=== PATIENT | female | born 1930 | race Caucasian/White ===

== ENCOUNTER 2018-06-17 05:57 | Inpatient (IN) ==
[2018-06-10 12:49] LABS: Basophils % 0.3 % (0.0-0.8); Eosinophils # 0.1 10*3/uL (0.0-0.87); Eosinophils % 1.1 % (0.00-10.9); Hematocrit 41.9 VOL% (35.7-47.0); Hemoglobin 14.1 GM/DL (12.0-16.0); Immature Granulocytes % 0.1 %; Immature Granulocytes Absolute 0.01 #; Lymphocytes # 2.8 10*3/uL (1.4-4.0); Mean Corpuscular HGB Conc 33.7 GM/DL (32-36); Mean Corpuscular Hemoglobin 33 PG (27-34); Mean Corpuscular Volume 97.7 FL (87-102); Mean Platelet Volume 10.8 FL (9.6-12.0); Monocytes # 0.6 10*3/uL (0.11-0.8); Monocytes % 7.8 % (1.7-12.7); Neutrophils # 4.4 10*3/uL (1.4-7.4); Neutrophils % 55.7 % (38.7-73.9); Platelet Count 145 T/CUMM (130-400); Red Blood Count 4.29 MC/CUMM (3.8-5.5); Red Cell Distribution Width 13.4 % (9.3-17.3); White Blood Count 7.9 T/CUMM (4-12)
[2018-06-10 12:57] LABS: INR 1.1; PT Patient Result 11.2 SECS
[2018-06-10 13:23] LABS: Albumin 3.5 G/DL (3.4-5.0); Bilirubin,Total 0.4 MG/DL (0.2-1.0); Calcium 9.4 MG/DL (8.5-10.1); Osmolality,Calculated 280.5 MOS/KG (273-304); Potassium 4.1 MMOL/L (3.5-5.1); Total Protein 7.4 G/DL (6.4-8.3)
[2018-06-17] MEDS ORDERED: VANCOMYCIN 1,000 MG VIAL ONE (06:06)
[2018-06-17] MEDS ORDERED: THROMBIN TOPICAL (RECOMBINANT) 5,000 UNIT VIAL TOP ONE (06:23)
[2018-06-17] MEDS ORDERED: TISSUE ADHESIVE 1 EACH APPLICATOR TOP ONE (06:23)
[2018-06-17] MEDS ORDERED: LIDOCAINE 1% 20 ML VIAL ONE (06:23)
[2018-06-17] MEDS ORDERED: HEPARIN 5,000 UNIT/1 ML VIAL ONE (06:23)
[2018-06-17] MEDS ORDERED: VANCOMYCIN 500 MG VIAL ONE (06:23)
[2018-06-17] MEDS ORDERED: VANCOMYCIN INJ 1,000 MG in SODIUM CHLORIDE 0.9% 250 ML IV ONE (06:30)
[2018-06-17] MEDS: SODIUM CHLORIDE 0.45% 1,000 ML IV SCH (06:55)
[2018-06-17] MEDS ORDERED: HEPARIN/NACL 0.9% 2 UNITS/ML 3,000 ML IV ONE (07:12)
[2018-06-17] MEDS: LACTATED RINGERS 1,000 ML IV SCH ×3 (07:49→20:40)
[2018-06-17] MEDS ORDERED: MORPHINE 4 MG/1 ML VIAL IV PRN ×2 (10:20)
[2018-06-17] MEDS ORDERED: ONDANSETRON 4 MG/2 ML VIAL IV PRN (10:20)
[2018-06-17] MEDS ORDERED: cloNIDine 0.1 MG TABLET PO PRN ×2 (10:23→15:23)
[2018-06-17] MEDS ORDERED: fentaNYL 100 MCG/2 ML VIAL ONE (10:43)
[2018-06-17] MEDS ORDERED: SEVOFLURANE 1 UNIT/15 MINUTE INH ONE (10:43)
[2018-06-17] MEDS ORDERED: HEPARIN/NACL 0.9% 2 UNITS/ML 500 ML IV ONE (10:43)
[2018-06-17] MEDS ORDERED: HEPARIN 10,000 UNIT/10 ML VIAL ONE (10:43)
[2018-06-17] MEDS ORDERED: SODIUM CHLORIDE 0.9% 250 ML IV ONE (10:44)
[2018-06-17] MEDS ORDERED: METOPROLOL TARTRATE 5 MG/5 ML VIAL IV ONE (10:44)
[2018-06-17] MEDS ORDERED: ESMOLOL 100 MG/10 ML VIAL IV ONE (10:44)
[2018-06-17] MEDS ORDERED: ROCURONIUM 100 MG/10 ML VIAL IV ONE (10:44)
[2018-06-17] MEDS ORDERED: GLYCOPYRROLATE 0.4 MG/2 ML VIAL ONE (10:44)
[2018-06-17] MEDS ORDERED: ETOMIDATE 40 MG/20 ML VIAL IV ONE (10:44)
[2018-06-17] MEDS ORDERED: NEOSTIGMINE 10 MG/10 ML VIAL ONE (10:44)
[2018-06-17] MEDS ORDERED: PHENYLEPHRINE 10 MG/1 ML VIAL IV ONE (10:44)
[2018-06-17] MEDS ORDERED: NITROGLYCERIN DRIP 50 MG/250 ML BOTTLE IV ONE (10:45)
[2018-06-17 12:48] LABS: Hematocrit 40.3 VOL% (35.7-47.0); Hemoglobin 13.6 GM/DL (12.0-16.0)
[2018-06-17] MEDS ORDERED: DIGOXIN 0.125 MG TABLET PO SCH (13:00)
[2018-06-17] MEDS ORDERED: SUCRALFATE 1 GM TABLET PO SCH (15:00)
[2018-06-17] MEDS ORDERED: SPIRONOLACTONE 25 MG TABLET PO SCH (17:00)
[2018-06-17] MEDS: FUROSEMIDE 40 MG TABLET PO SCH (17:19)
[2018-06-17] MEDS: SUCRALFATE 1 GM TABLET PO SCH (17:19)
[2018-06-17] MEDS: METOPROLOL SUCCINATE XL 50 MG TABLET PO SCH (17:19)
[2018-06-17] MEDS ORDERED: METOPROLOL SUCCINATE XL 50 MG TABLET PO SCH (21:00)
[2018-06-17] MEDS ORDERED: VENLAFAXINE 75 MG TABLET PO SCH (21:00)
[2018-06-17] MEDS ORDERED: SIMVASTATIN 40 MG TABLET PO SCH (21:00)
[2018-06-17] MEDS ORDERED: GABAPENTIN 100 MG CAPSULE PO SCH (21:00)
[2018-06-18] MEDS: LACTATED RINGERS 1,000 ML IV SCH ×2 (04:45→08:21)
[2018-06-18 06:02] LABS: Hematocrit 37.9 VOL% (35.7-47.0); Hemoglobin 12.8 GM/DL (12.0-16.0)
[2018-06-18 06:18] LABS: Calcium 8.4 MG/DL (8.5-10.1); Osmolality,Calculated 280.3 MOS/KG (273-304); Potassium 4.2 MMOL/L (3.5-5.1)
[2018-06-18] MEDS: SODIUM CHLORIDE 0.45% 1,000 ML IV SCH (08:21)
[2018-06-18] MEDS: SUCRALFATE 1 GM TABLET PO SCH ×2 (08:35→11:37)
[2018-06-18] MEDS: METOPROLOL SUCCINATE XL 50 MG TABLET PO SCH (08:35)
[2018-06-18] MEDS: FUROSEMIDE 40 MG TABLET PO SCH (08:35)
[2018-06-18] MEDS ORDERED: APIXABAN 5 MG TABLET PO SCH (09:00)
[2018-06-18] MEDS ORDERED: ANASTROZOLE 1 MG TABLET PO SCH (09:00)
[2018-06-18] MEDS ORDERED: ASPIRIN EC 81 MG TABLET PO SCH (09:00)
[2018-06-18] MEDS ORDERED: SPIRONOLACTONE 25 MG TABLET PO SCH (09:00)
[2018-06-18] MEDS ORDERED: ACETAMINOPHEN 325 MG TABLET PO PRN (10:15)
[2018-06-18 12:48] VITALS: BP 123/82
== END 2018-06-18 14:10 | disposition home or self-care (01) | DRG 269 ==
LOC: N.SDSINP 05:57 → N.3E 12:30
PROVIDERS: ADMIT Surgery; ATTEND Surgery
PROC: IRERAAA (2018-06-17 07:05)

== ENCOUNTER 2019-12-07 13:30 | Inpatient (IN) ==
[2019-12-07] MEDS ORDERED: SODIUM CHLORIDE 0.9% 1,000 ML IV STA (14:47)
[2019-12-07 15:39] LABS: Basophils % 0.2 % (0.0-0.8); Hematocrit 43.9 VOL% (35.7-47.0); Hemoglobin 14.7 GM/DL (12.0-16.0); Immature Granulocytes % 0.3 %; Immature Granulocytes Absolute 0.04 #; Lymphocytes % 16.8 % (21.3-54.2); Mean Corpuscular HGB Conc 33.5 GM/DL (32-36); Mean Corpuscular Volume 96.9 FL (87-102); Mean Platelet Volume 10.9 FL (9.6-12.0); Monocytes % 6.1 % (1.7-12.7); Neutrophils % 76.6 % (38.7-73.9); Platelet Count 160 T/CUMM (130-400); Red Blood Count 4.53 MC/CUMM (3.8-5.5); Red Cell Distribution Width 13.4 % (9.3-17.3); White Blood Count 11.8 T/CUMM (4-12)
[2019-12-07 16:00] LABS: INR 1.1; PT Patient Result 11.6 SECS (9.6-12.2)
[2019-12-07 16:05] LABS: Albumin 4.1 G/DL (3.4-5.0); Bilirubin,Total 1.1 MG/DL (0.2-1.0); Calcium 9.7 MG/DL (8.5-10.1); Osmolality,Calculated 280.5 MOS/KG (273-304); Thyroid Stimulating Hormone 1.07 uIU/ml (0.358-3.74)
[2019-12-07 16:38] LABS: Apearance,Urine CLEAR (Clear); Bilirubin,Urine Negative (Negative); Blood, Urine Negative (Negative); Glucose,Urine (UA) Negative (Negative); Ketones,Urine Negative (Negative); Nitrite,Urine Negative (Negative); Protein,Urine Negative; RBC,Urine 1 /HPF (0-4); Urine Color Yellow (Yellow); Urine Urobilinogen < 2.0 EU/DL (0.2-1.0)
[2019-12-07] MEDS ORDERED: ACETAMINOPHEN 325 MG TABLET PO PRN (16:58)
[2019-12-07] MEDS ORDERED: ONDANSETRON 4 MG/2 ML VIAL IV PRN (16:58)
[2019-12-07 17:05] LABS: Barbiturates Screen,Urine Negative (Negative); Benzodiazepines Screen,Urine Negative (Negative); Cannabinoid Screen,Urine Negative (Negative); Opiate Screen,Urine Negative (Negative); Phencyclidine Screen,Urine Negative (Negative)
[2019-12-07] MEDS: SODIUM CHLORIDE 0.9% 1,000 ML IV SCH (17:45)
[2019-12-08 05:26] LABS: Basophils % 0.3 % (0.0-0.8); Eosinophils # 0.1 10*3/uL (0.0-0.87); Eosinophils % 0.9 % (0.00-10.9); Hematocrit 40.1 VOL% (35.7-47.0); Hemoglobin 13.4 GM/DL (12.0-16.0); Immature Granulocytes % 0.1 %; Immature Granulocytes Absolute 0.01 #; Lymphocytes # 2.1 10*3/uL (1.4-4.0); Mean Corpuscular HGB Conc 33.4 GM/DL (32-36); Mean Corpuscular Volume 97.8 FL (87-102); Mean Platelet Volume 11.3 FL (9.6-12.0); Monocytes % 10.3 % (1.7-12.7); Neutrophils % 61.4 % (38.7-73.9); Platelet Count 146 T/CUMM (130-400); Red Cell Distribution Width 13.3 % (9.3-17.3); White Blood Count 7.9 T/CUMM (4-12)
[2019-12-08 05:50] LABS: Albumin 3.4 G/DL (3.4-5.0); Bilirubin,Total 1.1 MG/DL (0.2-1.0); Osmolality,Calculated 279.5 MOS/KG (273-304); Risk Ratio 3.65; Total Protein 6.8 G/DL (6.4-8.3); VLDL CHOLESTEROL 21.2 MG/DL
[2019-12-08] MEDS ORDERED: POTASSIUM CHLORIDE 20 MEQ TABLET PO PRN (08:14)
[2019-12-08] MEDS: PANTOPRAZOLE 40 MG TABLET PO SCH (09:28)
[2019-12-08] MEDS: SODIUM CHLORIDE 0.9% 1,000 ML IV SCH ×2 (10:30→21:27)
[2019-12-08 19:37] LABS: Folate 14.4 NG/ML (5.4-24.0); Vitamin B12 219 PG/ML (211-911)
[2019-12-08] MEDS: VENLAFAXINE 75 MG TABLET PO SCH (21:26)
[2019-12-08] MEDS: SIMVASTATIN 40 MG TABLET PO SCH (21:27)
[2019-12-08] MEDS: GABAPENTIN 100 MG CAPSULE PO SCH (21:27)
[2019-12-08] MEDS: MEMANTINE 5 MG TABLET PO SCH (21:27)
[2019-12-09 04:50] LABS: Basophils % 0.3 % (0.0-0.8); Eosinophils # 0.1 10*3/uL (0.0-0.87); Eosinophils % 1.5 % (0.00-10.9); Hematocrit 40.5 VOL% (35.7-47.0); Hemoglobin 13.5 GM/DL (12.0-16.0); Immature Granulocytes % 0.3 %; Immature Granulocytes Absolute 0.02 #; Lymphocytes # 1.8 10*3/uL (1.4-4.0); Mean Corpuscular HGB Conc 33.3 GM/DL (32-36); Mean Corpuscular Volume 98.5 FL (87-102); Mean Platelet Volume 11.3 FL (9.6-12.0); Monocytes % 9.6 % (1.7-12.7); Neutrophils % 63.3 % (38.7-73.9); Platelet Count 138 T/CUMM (130-400); Red Blood Count 4.11 MC/CUMM (3.8-5.5); Red Cell Distribution Width 13.4 % (9.3-17.3); White Blood Count 7.3 T/CUMM (4-12)
[2019-12-09 05:19] LABS: Albumin 3.1 G/DL (3.4-5.0); Bilirubin,Total 0.9 MG/DL (0.2-1.0); Calcium 8.5 MG/DL (8.5-10.1); Total Protein 6.5 G/DL (6.4-8.3)
[2019-12-09] MEDS: ANASTROZOLE 1 MG TABLET PO SCH (09:16)
[2019-12-09] MEDS: ASPIRIN EC 81 MG TABLET PO SCH (09:16)
[2019-12-09] MEDS: ASCORBIC ACID 500 MG TABLET PO SCH ×2 (09:16→18:36)
[2019-12-09] MEDS: SUCRALFATE 1 GM TABLET PO SCH ×3 (09:17→17:37)
[2019-12-09] MEDS: DOCUSATE SODIUM 100 MG CAPSULE PO SCH ×2 (09:17→21:17)
[2019-12-09] MEDS: MEMANTINE 5 MG TABLET PO SCH ×2 (09:17→21:18)
[2019-12-09] MEDS: METOPROLOL SUCCINATE XL 50 MG TABLET PO SCH ×2 (09:17→17:37)
[2019-12-09] MEDS: PANTOPRAZOLE 40 MG TABLET PO SCH (09:18)
[2019-12-09] MEDS: SPIRONOLACTONE 25 MG TABLET PO SCH (09:24)
[2019-12-09] MEDS: POLYETHYLENE GLYCOL POWDER 17 GM PACK PO SCH (09:25)
[2019-12-09] MEDS ORDERED: DIGOXIN 0.125 MG TABLET PO SCH (13:00)
[2019-12-09] MEDS: SODIUM CHLORIDE 0.9% 1,000 ML IV SCH (17:39)
[2019-12-09] MEDS: GABAPENTIN 100 MG CAPSULE PO SCH (21:17)
[2019-12-09] MEDS: VENLAFAXINE 75 MG TABLET PO SCH (21:17)
[2019-12-09] MEDS: SIMVASTATIN 40 MG TABLET PO SCH (21:18)
[2019-12-10 05:08] LABS: Basophils % 0.3 % (0.0-0.8); Eosinophils # 0.1 10*3/uL (0.0-0.87); Eosinophils % 1.8 % (0.00-10.9); Hematocrit 39.9 VOL% (35.7-47.0); Immature Granulocytes % 0.3 %; Immature Granulocytes Absolute 0.02 #; Lymphocytes # 2.1 10*3/uL (1.4-4.0); Lymphocytes % 26.2 % (21.3-54.2); Mean Corpuscular HGB Conc 32.6 GM/DL (32-36); Mean Corpuscular Volume 100.3 FL (87-102); Mean Platelet Volume 10.8 FL (9.6-12.0); Monocytes % 10.4 % (1.7-12.7); Platelet Count 139 T/CUMM (130-400); Red Blood Count 3.98 MC/CUMM (3.8-5.5); Red Cell Distribution Width 13.2 % (9.3-17.3); White Blood Count 7.8 T/CUMM (4-12)
[2019-12-10 05:38] LABS: Bilirubin,Total 0.7 MG/DL (0.2-1.0); Calcium 8.4 MG/DL (8.5-10.1); Osmolality,Calculated 281.3 MOS/KG (273-304); Total Protein 6.3 G/DL (6.4-8.3)
[2019-12-10 08:15] VITALS: BP 172/81
[2019-12-10] MEDS: SUCRALFATE 1 GM TABLET PO SCH (09:10)
[2019-12-10] MEDS: POLYETHYLENE GLYCOL POWDER 17 GM PACK PO SCH (09:10)
[2019-12-10] MEDS: ASPIRIN EC 81 MG TABLET PO SCH (09:11)
[2019-12-10] MEDS: METOPROLOL SUCCINATE XL 50 MG TABLET PO SCH (09:11)
[2019-12-10] MEDS: MEMANTINE 5 MG TABLET PO SCH (09:11)
[2019-12-10] MEDS: DOCUSATE SODIUM 100 MG CAPSULE PO SCH (09:11)
[2019-12-10] MEDS: ANASTROZOLE 1 MG TABLET PO SCH (09:11)
[2019-12-10] MEDS: ASCORBIC ACID 500 MG TABLET PO SCH (09:12)
[2019-12-10] MEDS: PANTOPRAZOLE 40 MG TABLET PO SCH (09:12)
[2019-12-10] MEDS: SPIRONOLACTONE 25 MG TABLET PO SCH (09:12)
[2019-12-10] MEDS: SODIUM CHLORIDE 0.9% 1,000 ML IV SCH (09:13)
== END 2019-12-10 11:56 | DRG 884 ==
LOC: N.ED 13:30 → N.EDINP 16:56 → N.3E 17:46
PROVIDERS: ADMIT Internal Medicine; ATTEND Internal Medicine

== ENCOUNTER 2021-08-06 15:37 | Inpatient (IN) ==
[2021-08-06] MEDS ORDERED: HYDROmorphone 2 MG/1 ML VIAL IV STA (16:41)
[2021-08-06] MEDS ORDERED: HYDROmorphone 2 MG/1 ML VIAL ONE (16:41)
[2021-08-06] MEDS ORDERED: ONDANSETRON 4 MG/2 ML VIAL IV STA (16:41)
[2021-08-06] MEDS ORDERED: MAGNESIUM HYDROXIDE SUSP 30 ML UDCUP PO PRN (17:13)
[2021-08-06] MEDS ORDERED: ONDANSETRON 4 MG/2 ML VIAL IV PRN (17:13)
[2021-08-06] MEDS ORDERED: HYDROmorphone 2 MG/1 ML VIAL IV PRN (17:13)
[2021-08-06 17:47] LABS: Basophils % 0.2 % (0.0-0.8); Eosinophils % 0.2 % (0.00-10.9); Hematocrit 42.4 VOL% (35.7-47.0); Hemoglobin 13.8 GM/DL (12.0-16.0); Immature Granulocytes % 0.3 %; Immature Granulocytes Absolute 0.03 #; Lymphocytes # 1.7 10*3/uL (1.4-4.0); Lymphocytes % 17.2 % (21.3-54.2); Mean Corpuscular HGB Conc 32.5 GM/DL (32-36); Mean Corpuscular Volume 101.4 FL (87-102); Mean Platelet Volume 11.1 FL (9.6-12.0); Monocytes % 6.8 % (1.7-12.7); Neutrophils % 75.3 % (38.7-73.9); Platelet Count 157 T/CUMM (130-400); Red Blood Count 4.18 MC/CUMM (3.8-5.5); Red Cell Distribution Width 13.2 % (9.3-17.3); White Blood Count 10.1 T/CUMM (4-12)
[2021-08-06 18:16] LABS: Bilirubin,Total 0.8 MG/DL (0.20-1.00); Calcium 9.8 MG/DL (8.5-10.1); Osmolality,Calculated 280.5 MOS/KG (273-304); Potassium 4.5 MMOL/L (3.5-5.1)
[2021-08-06] MEDS: SODIUM CHLORIDE 0.9% 1,000 ML IV SCH (19:12)
[2021-08-06] MEDS: MEMANTINE 10 MG TABLET PO SCH (20:35)
[2021-08-06] MEDS: SIMVASTATIN 40 MG TABLET PO SCH (20:35)
[2021-08-06] MEDS: MIRTAZAPINE 15 MG TABLET PO SCH (20:35)
[2021-08-06] MEDS: VENLAFAXINE 75 MG TABLET PO SCH (20:35)
[2021-08-06] MEDS: DONEPEZIL 5 MG TABLET PO SCH (20:35)
[2021-08-06] MEDS: GABAPENTIN 100 MG CAPSULE PO SCH (20:35)
[2021-08-07 06:36] LABS: Albumin 3.6 G/DL (3.4-5.0); Bilirubin,Total 0.8 MG/DL (0.20-1.00); Osmolality,Calculated 284.3 MOS/KG (273-304); Potassium 4.2 MMOL/L (3.5-5.1); Total Protein 7.2 G/DL (6.4-8.2)
[2021-08-07] MEDS ORDERED: CLINDAMYCIN INJ 900 MG/50 ML PREMIX IV ONE (06:36)
[2021-08-07] MEDS ORDERED: DEXTROSE 50% 25 GM/50 ML VIAL IV PRN (09:39)
[2021-08-07] MEDS ORDERED: GLUCAGON 1 MG VIAL IM PRN (09:39)
[2021-08-07] MEDS: FUROSEMIDE 40 MG TABLET PO SCH ×2 (10:07→17:59)
[2021-08-07] MEDS: ANASTROZOLE 1 MG TABLET PO SCH (10:08)
[2021-08-07] MEDS: SPIRONOLACTONE 25 MG TABLET PO SCH (10:08)
[2021-08-07] MEDS: MEMANTINE 10 MG TABLET PO SCH ×2 (10:09→20:30)
[2021-08-07] MEDS: GABAPENTIN 100 MG CAPSULE PO SCH ×2 (10:09→20:30)
[2021-08-07] MEDS: MULTIVITAMIN (CENTRUM) TABLET PO SCH (10:09)
[2021-08-07] MEDS: PANTOPRAZOLE 40 MG TABLET PO SCH (10:10)
[2021-08-07] MEDS: SODIUM CHLORIDE 0.9% 1,000 ML IV SCH ×2 (10:25→15:35)
[2021-08-07] MEDS: METOPROLOL SUCCINATE XL 50 MG TABLET PO SCH ×2 (12:35→17:59)
[2021-08-07] MEDS: INSULIN LISPRO 100 UNIT/ML SUBCUT SCH ×3 (12:35→21:03)
[2021-08-07] MEDS ORDERED: ETOMIDATE 40 MG/20 ML VIAL IV ONE (12:39)
[2021-08-07] MEDS ORDERED: LIDOCAINE 2% 5 ML VIAL ONE (12:39)
[2021-08-07] MEDS ORDERED: fentaNYL 100 MCG/2 ML VIAL ONE ×2 (12:40→14:02)
[2021-08-07] MEDS ORDERED: BUPIVACAINE MPF 0.25% 30 ML VIAL ONE (12:45)
[2021-08-07] MEDS ORDERED: LIDOCAINE 1% 5 ML VIAL ONE (12:45)
[2021-08-07] MEDS ORDERED: DEXAMETHASONE 4 MG/1 ML VIAL ONE ×2 (12:45→14:02)
[2021-08-07] MEDS ORDERED: DEXMEDETOMIDINE 200 MCG/2 ML VIAL ONE (12:55)
[2021-08-07] MEDS: DIGOXIN 0.125 MG TABLET PO SCH (13:33)
[2021-08-07] MEDS ORDERED: ONDANSETRON 4 MG/2 ML VIAL ONE (14:02)
[2021-08-07] MEDS ORDERED: BACITRACIN OINT 0.9 GM PACK TOP ONE (14:21)
[2021-08-07] MEDS ORDERED: propofoL 200 MG/20 ML VIAL IV ONE (14:41)
[2021-08-07] MEDS ORDERED: SEVOFLURANE 1 UNIT/15 MINUTE INH ONE (14:41)
[2021-08-07] MEDS ORDERED: PHENYLEPHRINE 1 MG/10 ML SYRINGE IV ONE (14:41)
[2021-08-07] MEDS ORDERED: ACETAMINOPHEN INJ 1,000 MG/100 ML VIAL IV ONE (14:42)
[2021-08-07] MEDS ORDERED: METOPROLOL TARTRATE 5 MG/5 ML VIAL IV ONE (14:53)
[2021-08-07] MEDS: VENLAFAXINE 75 MG TABLET PO SCH (20:30)
[2021-08-07] MEDS: CLINDAMYCIN INJ 900 MG/50 ML PREMIX IV SCH (20:30)
[2021-08-07] MEDS: DONEPEZIL 5 MG TABLET PO SCH (20:30)
[2021-08-07] MEDS: SIMVASTATIN 40 MG TABLET PO SCH (20:30)
[2021-08-07] MEDS: MIRTAZAPINE 15 MG TABLET PO SCH (20:30)
[2021-08-08] MEDS: CLINDAMYCIN INJ 900 MG/50 ML PREMIX IV SCH (04:52)
[2021-08-08] MEDS: SODIUM CHLORIDE 0.9% 1,000 ML IV SCH ×2 (04:57→10:38)
[2021-08-08 05:22] LABS: Hematocrit 38.4 VOL% (35.7-47.0); Hemoglobin 12.5 GM/DL (12.0-16.0); Immature Granulocytes % 0.5 %; Immature Granulocytes Absolute 0.04 #; Lymphocytes # 1.7 10*3/uL (1.4-4.0); Lymphocytes % 18.9 % (21.3-54.2); Mean Corpuscular HGB Conc 32.6 GM/DL (32-36); Mean Corpuscular Volume 104.9 FL (87-102); Mean Platelet Volume 11.5 FL (9.6-12.0); Monocytes % 7.4 % (1.7-12.7); Neutrophils % 73.2 % (38.7-73.9); Platelet Count 137 T/CUMM (130-400); Red Blood Count 3.66 MC/CUMM (3.8-5.5); White Blood Count 8.8 T/CUMM (4-12)
[2021-08-08 05:37] LABS: Albumin 3.4 G/DL (3.4-5.0); Bilirubin,Total 0.8 MG/DL (0.20-1.00); Calcium 8.5 MG/DL (8.5-10.1); Osmolality,Calculated 287.1 MOS/KG (273-304); Potassium 4.1 MMOL/L (3.5-5.1); Total Protein 7.1 G/DL (6.4-8.2)
[2021-08-08] MEDS: INSULIN LISPRO 100 UNIT/ML SUBCUT SCH ×4 (08:37→20:11)
[2021-08-08] MEDS: MULTIVITAMIN (CENTRUM) TABLET PO SCH (09:04)
[2021-08-08] MEDS: MEMANTINE 10 MG TABLET PO SCH ×2 (09:04→20:15)
[2021-08-08] MEDS: FUROSEMIDE 40 MG TABLET PO SCH ×2 (09:04→17:46)
[2021-08-08] MEDS: SPIRONOLACTONE 25 MG TABLET PO SCH (09:04)
[2021-08-08] MEDS: ANASTROZOLE 1 MG TABLET PO SCH (09:04)
[2021-08-08] MEDS: GABAPENTIN 100 MG CAPSULE PO SCH ×2 (09:04→20:15)
[2021-08-08] MEDS: METOPROLOL SUCCINATE XL 50 MG TABLET PO SCH ×2 (09:04→17:46)
[2021-08-08] MEDS: PANTOPRAZOLE 40 MG TABLET PO SCH (09:04)
[2021-08-08] MEDS: APIXABAN 2.5 MG TABLET PO SCH ×2 (10:57→20:15)
[2021-08-08] MEDS: DIGOXIN 0.125 MG TABLET PO SCH (13:17)
[2021-08-08] MEDS: MIRTAZAPINE 15 MG TABLET PO SCH (20:15)
[2021-08-08] MEDS: SIMVASTATIN 40 MG TABLET PO SCH (20:15)
[2021-08-08] MEDS: DONEPEZIL 5 MG TABLET PO SCH (20:15)
[2021-08-08] MEDS: VENLAFAXINE 75 MG TABLET PO SCH (20:15)
[2021-08-09] MEDS: INSULIN LISPRO 100 UNIT/ML SUBCUT SCH ×2 (08:18→12:29)
[2021-08-09] MEDS: METOPROLOL SUCCINATE XL 50 MG TABLET PO SCH (09:19)
[2021-08-09] MEDS: GABAPENTIN 100 MG CAPSULE PO SCH (09:19)
[2021-08-09] MEDS: APIXABAN 2.5 MG TABLET PO SCH (09:19)
[2021-08-09] MEDS: MEMANTINE 10 MG TABLET PO SCH (09:19)
[2021-08-09] MEDS: PANTOPRAZOLE 40 MG TABLET PO SCH (09:19)
[2021-08-09] MEDS: FUROSEMIDE 40 MG TABLET PO SCH (09:19)
[2021-08-09] MEDS: SPIRONOLACTONE 25 MG TABLET PO SCH (09:19)
[2021-08-09] MEDS: MULTIVITAMIN (CENTRUM) TABLET PO SCH (09:19)
[2021-08-09] MEDS: ANASTROZOLE 1 MG TABLET PO SCH (09:19)
[2021-08-09 11:13] VITALS: BP 105/55
[2021-08-09] MEDS: DIGOXIN 0.125 MG TABLET PO SCH (12:52)
== END 2021-08-09 14:30 | disposition swing bed (61) | DRG 493 ==
LOC: N.ED 15:37 → N.EDINP 17:13 → N.3E 17:28
PROVIDERS: ADMIT Family Medicine; ATTEND Family Medicine

== ENCOUNTER 2021-08-23 11:37 | Inpatient (IN) ==
[2021-08-23] MEDS ORDERED: ASPIRIN 325 MG TABLET PO STA (12:13)
[2021-08-23] MEDS ORDERED: NITROGLYCERIN 2% OINT 1 INCH/GM PACK TOP STA (13:20)
[2021-08-23 13:52] LABS: Basophils % 0.3 % (0.0-0.8); Eosinophils # 0.1 10*3/uL (0.0-0.87); Eosinophils % 1.3 % (0.00-10.9); Hematocrit 38.4 VOL% (35.7-47.0); Hemoglobin 12.3 GM/DL (12.0-16.0); Immature Granulocytes % 0.6 %; Immature Granulocytes Absolute 0.04 #; Lymphocytes # 1.6 10*3/uL (1.4-4.0); Lymphocytes % 24.1 % (21.3-54.2); Mean Corpuscular Volume 103.2 FL (87-102); Mean Platelet Volume 10.7 FL (9.6-12.0); Neutrophils % 65.7 % (38.7-73.9); Platelet Count 195 T/CUMM (130-400); Red Blood Count 3.72 MC/CUMM (3.8-5.5); Red Cell Distribution Width 13.2 % (9.3-17.3); White Blood Count 6.8 T/CUMM (4-12)
[2021-08-23 14:16] LABS: Albumin 3.2 G/DL (3.4-5.0); Calcium 9.3 MG/DL (8.5-10.1); Osmolality,Calculated 282.4 MOS/KG (273-304); Potassium 4.2 MMOL/L (3.5-5.1); Total Protein 6.9 G/DL (6.4-8.2)
[2021-08-23 14:27] LABS: Bilirubin,Urine Negative (Negative); Blood, Urine Negative (Negative); Glucose,Urine (UA) Negative (Negative); Hyaline Casts,Urine 5 /LPF (0-3); Ketones,Urine Negative (Negative); Mucus,Urine Occasional /LPF (Occasional); Nitrite,Urine Negative (Negative); Protein,Urine Negative; RBC,Urine <1 /HPF (0-4); Urine Appearance CLEAR (Clear); Urine Color Yellow (Yellow); Urine Specific Gravity 1.015 (1.001-1.035); Urine Urobilinogen < 2.0 EU/DL (0.2-1.0)
[2021-08-23] MEDS ORDERED: ACETAMINOPHEN 325 MG TABLET PO PRN (14:37)
[2021-08-23] MEDS ORDERED: ONDANSETRON 4 MG/2 ML VIAL IV PRN (14:37)
[2021-08-23] MEDS ORDERED: SODIUM CHLORIDE 0.9% 1,000 ML IV SCH (15:00)
[2021-08-23] MEDS ORDERED: BISACODYL 10 MG SUPP RECTAL PRN (18:08)
[2021-08-23] MEDS ORDERED: ONDANSETRON 4 MG TABLET PO PRN (18:08)
[2021-08-23] MEDS: SIMVASTATIN 40 MG TABLET PO SCH (20:40)
[2021-08-23] MEDS: DONEPEZIL 5 MG TABLET PO SCH (20:40)
[2021-08-23] MEDS: MEMANTINE 10 MG TABLET PO SCH (20:40)
[2021-08-23] MEDS ORDERED: DOCUSATE SODIUM 100 MG CAPSULE PO SCH (21:00)
[2021-08-24 04:11] LABS: Basophils % 0.6 % (0.0-0.8); Eosinophils # 0.1 10*3/uL (0.0-0.87); Eosinophils % 1.8 % (0.00-10.9); Hematocrit 36.7 VOL% (35.7-47.0); Hemoglobin 11.9 GM/DL (12.0-16.0); Immature Granulocytes % 0.2 %; Immature Granulocytes Absolute 0.01 #; Lymphocytes # 1.9 10*3/uL (1.4-4.0); Lymphocytes % 37.9 % (21.3-54.2); Mean Corpuscular HGB Conc 32.4 GM/DL (32-36); Mean Corpuscular Volume 104.3 FL (87-102); Mean Platelet Volume 10.6 FL (9.6-12.0); Neutrophils % 45.5 % (38.7-73.9); Platelet Count 188 T/CUMM (130-400); Red Blood Count 3.52 MC/CUMM (3.8-5.5); Red Cell Distribution Width 13.6 % (9.3-17.3)
[2021-08-24 04:34] LABS: Albumin 2.9 G/DL (3.4-5.0); Bilirubin,Total 0.8 MG/DL (0.20-1.00); Calcium 8.7 MG/DL (8.5-10.1); Osmolality,Calculated 283.4 MOS/KG (273-304); Potassium 4.1 MMOL/L (3.5-5.1); Total Protein 6.2 G/DL (6.4-8.2)
[2021-08-24] MEDS ORDERED: PANTOPRAZOLE 40 MG TABLET PO SCH (09:00)
[2021-08-24] MEDS: METOPROLOL SUCCINATE XL 50 MG TABLET PO SCH ×2 (09:43→17:20)
[2021-08-24] MEDS: MEMANTINE 10 MG TABLET PO SCH ×2 (09:43→20:43)
[2021-08-24] MEDS: ANASTROZOLE 1 MG TABLET PO SCH (09:43)
[2021-08-24] MEDS: FUROSEMIDE 40 MG TABLET PO SCH (09:44)
[2021-08-24] MEDS: APIXABAN 2.5 MG TABLET PO SCH ×2 (09:44→20:43)
[2021-08-24] MEDS: SPIRONOLACTONE 25 MG TABLET PO SCH (09:44)
[2021-08-24] MEDS: PANTOPRAZOLE 40 MG TABLET PO SCH (09:44)
[2021-08-24] MEDS: DIGOXIN 0.125 MG TABLET PO SCH (11:56)
[2021-08-24] MEDS ORDERED: TUBERCULIN SKIN TEST 0.1 ML SYRINGE INTRADERM ONE (17:21)
[2021-08-24] MEDS: DONEPEZIL 5 MG TABLET PO SCH (20:43)
[2021-08-24] MEDS: SIMVASTATIN 40 MG TABLET PO SCH (20:43)
[2021-08-24] MEDS ORDERED: ACETAMINOPHEN 325 MG TABLET PO PRN (21:12)
[2021-08-24] MEDS: ZALEPLON 5 MG CAPSULE PO PRN (23:15)
[2021-08-25 04:57] LABS: Basophils % 0.2 % (0.0-0.8); Eosinophils # 0.1 10*3/uL (0.0-0.87); Eosinophils % 0.9 % (0.00-10.9); Hematocrit 38.2 VOL% (35.7-47.0); Hemoglobin 12.6 GM/DL (12.0-16.0); Immature Granulocytes % 0.5 %; Immature Granulocytes Absolute 0.03 #; Lymphocytes % 30.5 % (21.3-54.2); Mean Corpuscular Volume 102.1 FL (87-102); Mean Platelet Volume 10.8 FL (9.6-12.0); Neutrophils % 57.9 % (38.7-73.9); Platelet Count 188 T/CUMM (130-400); Red Blood Count 3.74 MC/CUMM (3.8-5.5); Red Cell Distribution Width 13.2 % (9.3-17.3); White Blood Count 6.4 T/CUMM (4-12)
[2021-08-25 05:15] LABS: Calcium 9.4 MG/DL (8.5-10.1); Osmolality,Calculated 287.3 MOS/KG (273-304); Potassium 4.1 MMOL/L (3.5-5.1)
[2021-08-25] MEDS: PANTOPRAZOLE 40 MG TABLET PO SCH (08:42)
[2021-08-25] MEDS: SPIRONOLACTONE 25 MG TABLET PO SCH (08:42)
[2021-08-25] MEDS: METOPROLOL SUCCINATE XL 50 MG TABLET PO SCH ×2 (08:43→16:04)
[2021-08-25] MEDS: ANASTROZOLE 1 MG TABLET PO SCH (08:43)
[2021-08-25] MEDS: ASPIRIN EC 81 MG TABLET PO SCH (08:43)
[2021-08-25] MEDS: FUROSEMIDE 40 MG TABLET PO SCH (08:43)
[2021-08-25] MEDS: APIXABAN 2.5 MG TABLET PO SCH ×2 (08:43→20:41)
[2021-08-25] MEDS: MEMANTINE 10 MG TABLET PO SCH ×2 (08:43→20:41)
[2021-08-25] MEDS: DIGOXIN 0.125 MG TABLET PO SCH (12:51)
[2021-08-25] MEDS: SIMVASTATIN 40 MG TABLET PO SCH (20:41)
[2021-08-25] MEDS: DONEPEZIL 5 MG TABLET PO SCH (20:41)
[2021-08-26] MEDS ORDERED: LORazepam 2 MG/1 ML VIAL IV ONE (00:38)
[2021-08-26 04:20] LABS: Basophils % 0.2 % (0.0-0.8); Eosinophils # 0.1 10*3/uL (0.0-0.87); Eosinophils % 0.7 % (0.00-10.9); Hematocrit 37.6 VOL% (35.7-47.0); Hemoglobin 12.3 GM/DL (12.0-16.0); Immature Granulocytes % 0.4 %; Immature Granulocytes Absolute 0.03 #; Lymphocytes # 1.8 10*3/uL (1.4-4.0); Lymphocytes % 20.8 % (21.3-54.2); Mean Corpuscular HGB Conc 32.7 GM/DL (32-36); Mean Corpuscular Volume 102.5 FL (87-102); Mean Platelet Volume 10.9 FL (9.6-12.0); Monocytes % 7.4 % (1.7-12.7); Neutrophils % 70.5 % (38.7-73.9); Platelet Count 194 T/CUMM (130-400); Red Blood Count 3.67 MC/CUMM (3.8-5.5); Red Cell Distribution Width 13.3 % (9.3-17.3); White Blood Count 8.6 T/CUMM (4-12)
[2021-08-26 04:38] LABS: Calcium 9.4 MG/DL (8.5-10.1); Osmolality,Calculated 285.4 MOS/KG (273-304); Potassium 3.4 MMOL/L (3.5-5.1)
[2021-08-26] MEDS: APIXABAN 2.5 MG TABLET PO SCH (08:14)
[2021-08-26] MEDS: SPIRONOLACTONE 25 MG TABLET PO SCH (08:32)
[2021-08-26] MEDS: MEMANTINE 10 MG TABLET PO SCH ×2 (08:32→21:24)
[2021-08-26] MEDS: METOPROLOL SUCCINATE XL 50 MG TABLET PO SCH ×2 (08:33→16:41)
[2021-08-26] MEDS: ASPIRIN EC 81 MG TABLET PO SCH (08:33)
[2021-08-26] MEDS: PANTOPRAZOLE 40 MG TABLET PO SCH (08:33)
[2021-08-26] MEDS: ANASTROZOLE 1 MG TABLET PO SCH (08:33)
[2021-08-26] MEDS: FUROSEMIDE 40 MG TABLET PO SCH (08:33)
[2021-08-26] MEDS: DIGOXIN 0.125 MG TABLET PO SCH (12:33)
[2021-08-26] MEDS ORDERED: HALOPERIDOL 5 MG/ML AMP IM PRN (14:13)
[2021-08-26 19:05] LABS: Bilirubin,Urine Negative (Negative); Blood, Urine Negative (Negative); Glucose,Urine (UA) Negative (Negative); Hyaline Casts,Urine 1 /LPF (0-3); Ketones,Urine Negative (Negative); Nitrite,Urine Negative (Negative); Protein,Urine Negative; RBC,Urine 1 /HPF (0-4); Urine Appearance CLEAR (Clear); Urine Color Straw (Yellow); Urine Specific Gravity 1.005 (1.001-1.035); Urine Urobilinogen < 2.0 EU/DL (0.2-1.0)
[2021-08-26] MEDS: ZALEPLON 5 MG CAPSULE PO PRN (21:24)
[2021-08-26] MEDS: SIMVASTATIN 40 MG TABLET PO SCH (21:24)
[2021-08-26] MEDS: DONEPEZIL 5 MG TABLET PO SCH (21:24)
[2021-08-27] MEDS: LACTATED RINGERS 1,000 ML IV SCH ×3 (00:15→20:34)
[2021-08-27 05:31] LABS: Basophils % 0.3 % (0.0-0.8); Eosinophils # 0.2 10*3/uL (0.0-0.87); Eosinophils % 2.4 % (0.00-10.9); Hematocrit 37.7 VOL% (35.7-47.0); Hemoglobin 12.7 GM/DL (12.0-16.0); Immature Granulocytes % 0.4 %; Immature Granulocytes Absolute 0.03 #; Lymphocytes # 2.4 10*3/uL (1.4-4.0); Lymphocytes % 31.8 % (21.3-54.2); Mean Corpuscular HGB Conc 33.7 GM/DL (32-36); Mean Corpuscular Volume 101.3 FL (87-102); Monocytes % 10.3 % (1.7-12.7); Neutrophils % 54.8 % (38.7-73.9); Platelet Count 196 T/CUMM (130-400); Red Blood Count 3.72 MC/CUMM (3.8-5.5); Red Cell Distribution Width 13.5 % (9.3-17.3); White Blood Count 7.5 T/CUMM (4-12)
[2021-08-27 05:49] LABS: Calcium 9.7 MG/DL (8.5-10.1); Osmolality,Calculated 286.1 MOS/KG (273-304); Potassium 3.2 MMOL/L (3.5-5.1)
[2021-08-27] MEDS ORDERED: ceFAZolin 2,000 MG/50 ML DUPLEX IV ONE (06:30)
[2021-08-27] MEDS: METOPROLOL SUCCINATE XL 50 MG TABLET PO SCH ×2 (08:44→17:17)
[2021-08-27] MEDS: SPIRONOLACTONE 25 MG TABLET PO SCH (10:13)
[2021-08-27] MEDS: ANASTROZOLE 1 MG TABLET PO SCH (10:13)
[2021-08-27] MEDS: ASPIRIN EC 81 MG TABLET PO SCH (10:13)
[2021-08-27] MEDS: FUROSEMIDE 40 MG TABLET PO SCH (10:13)
[2021-08-27] MEDS: PANTOPRAZOLE 40 MG TABLET PO SCH (10:14)
[2021-08-27] MEDS: MEMANTINE 10 MG TABLET PO SCH ×2 (10:14→20:33)
[2021-08-27] MEDS ORDERED: DEXMEDETOMIDINE 200 MCG/2 ML VIAL ONE (11:28)
[2021-08-27] MEDS ORDERED: MIDAZOLAM 2 MG/2 ML VIAL ONE (11:28)
[2021-08-27] MEDS ORDERED: ONDANSETRON 4 MG/2 ML VIAL ONE (11:28)
[2021-08-27] MEDS ORDERED: DEXAMETHASONE 4 MG/1 ML VIAL ONE ×2 (11:32→11:59)
[2021-08-27] MEDS ORDERED: LIDOCAINE 2% 5 ML VIAL ONE (11:32)
[2021-08-27] MEDS ORDERED: ROPIVACAINE 0.5% 30 ML VIAL ONE ×2 (11:32→11:40)
[2021-08-27] MEDS: DIGOXIN 0.125 MG TABLET PO SCH (12:02)
[2021-08-27] MEDS ORDERED: BUPIVACAINE SPINAL 0.75% 2 ML AMP SPINAL ONE (12:20)
[2021-08-27] MEDS ORDERED: PHENYLEPHRINE 1 MG/10 ML SYRINGE IV ONE ×4 (12:57→15:53)
[2021-08-27] MEDS ORDERED: ETOMIDATE 40 MG/20 ML VIAL IV ONE (13:20)
[2021-08-27] MEDS ORDERED: MAGNESIUM HYDROXIDE SUSP 30 ML UDCUP PO PRN (15:54)
[2021-08-27] MEDS ORDERED: ONDANSETRON 4 MG/2 ML VIAL IV PRN (15:54)
[2021-08-27] MEDS ORDERED: MORPHINE 2 MG/1 ML SYRINGE IV PRN (16:00)
[2021-08-27 16:28] LABS: Bilirubin,Urine Negative (Negative); Blood, Urine Negative (Negative); Glucose,Urine (UA) Negative (Negative); Hyaline Casts,Urine 12 /LPF (0-3); Ketones,Urine Negative (Negative); Mucus,Urine Occasional /LPF (Occasional); Nitrite,Urine Negative (Negative); Protein,Urine Negative; Urine Appearance CLEAR (Clear); Urine Color Yellow (Yellow); Urine Specific Gravity 1.017 (1.001-1.035); Urine Urobilinogen < 2.0 EU/DL (0.2-1.0)
[2021-08-27] MEDS: SIMVASTATIN 40 MG TABLET PO SCH (20:33)
[2021-08-27] MEDS: APIXABAN 2.5 MG TABLET PO SCH (20:33)
[2021-08-27] MEDS: DONEPEZIL 5 MG TABLET PO SCH (20:34)
[2021-08-27] MEDS: ceFAZolin 2,000 MG/50 ML DUPLEX IV SCH (22:38)
[2021-08-28] MEDS: ceFAZolin 2,000 MG/50 ML DUPLEX IV SCH (05:14)
[2021-08-28 06:13] LABS: Basophils % 0.1 % (0.0-0.8); Hematocrit 36.2 VOL% (35.7-47.0); Hemoglobin 11.6 GM/DL (12.0-16.0); Immature Granulocytes % 1.4 %; Immature Granulocytes Absolute 0.14 #; Lymphocytes # 1.7 10*3/uL (1.4-4.0); Lymphocytes % 16.4 % (21.3-54.2); Mean Corpuscular Volume 104.6 FL (87-102); Mean Platelet Volume 11.4 FL (9.6-12.0); Monocytes % 8.2 % (1.7-12.7); Neutrophils % 73.9 % (38.7-73.9); Platelet Count 160 T/CUMM (130-400); Red Blood Count 3.46 MC/CUMM (3.8-5.5); Red Cell Distribution Width 13.4 % (9.3-17.3); White Blood Count 10.3 T/CUMM (4-12)
[2021-08-28 06:35] LABS: Calcium 9.2 MG/DL (8.5-10.1); Osmolality,Calculated 280.7 MOS/KG (273-304); Potassium 4.9 MMOL/L (3.5-5.1)
[2021-08-28] MEDS: PANTOPRAZOLE 40 MG TABLET PO SCH (08:58)
[2021-08-28] MEDS: APIXABAN 2.5 MG TABLET PO SCH ×2 (08:58→21:03)
[2021-08-28] MEDS: ANASTROZOLE 1 MG TABLET PO SCH (08:58)
[2021-08-28] MEDS: MEMANTINE 10 MG TABLET PO SCH ×2 (08:58→21:03)
[2021-08-28] MEDS: FUROSEMIDE 40 MG TABLET PO SCH (08:58)
[2021-08-28] MEDS: SPIRONOLACTONE 25 MG TABLET PO SCH (08:58)
[2021-08-28] MEDS: METOPROLOL SUCCINATE XL 50 MG TABLET PO SCH ×2 (08:58→18:38)
[2021-08-28] MEDS: ASPIRIN EC 81 MG TABLET PO SCH (08:58)
[2021-08-28] MEDS: DIGOXIN 0.125 MG TABLET PO SCH (12:45)
[2021-08-28] MEDS: SIMVASTATIN 40 MG TABLET PO SCH (21:03)
[2021-08-28] MEDS: DONEPEZIL 5 MG TABLET PO SCH (21:03)
[2021-08-29 05:02] LABS: Basophils % 0.2 % (0.0-0.8); Eosinophils # 0.1 10*3/uL (0.0-0.87); Hematocrit 30.8 VOL% (35.7-47.0); Hemoglobin 9.8 GM/DL (12.0-16.0); Immature Granulocytes % 0.3 %; Immature Granulocytes Absolute 0.03 #; Lymphocytes # 2.4 10*3/uL (1.4-4.0); Mean Corpuscular HGB Conc 31.8 GM/DL (32-36); Mean Corpuscular Volume 104.1 FL (87-102); Mean Platelet Volume 11.2 FL (9.6-12.0); Monocytes % 9.1 % (1.7-12.7); Neutrophils % 65.4 % (38.7-73.9); Platelet Count 148 T/CUMM (130-400); Red Blood Count 2.96 MC/CUMM (3.8-5.5); Red Cell Distribution Width 13.7 % (9.3-17.3); White Blood Count 9.9 T/CUMM (4-12)
[2021-08-29 05:27] LABS: Calcium 8.9 MG/DL (8.5-10.1); Osmolality,Calculated 287.3 MOS/KG (273-304); Potassium 3.8 MMOL/L (3.5-5.1)
[2021-08-29] MEDS: FUROSEMIDE 40 MG TABLET PO SCH (09:43)
[2021-08-29] MEDS: ASPIRIN EC 81 MG TABLET PO SCH (09:43)
[2021-08-29] MEDS: METOPROLOL SUCCINATE XL 50 MG TABLET PO SCH (09:43)
[2021-08-29] MEDS: MEMANTINE 10 MG TABLET PO SCH (09:43)
[2021-08-29] MEDS: APIXABAN 2.5 MG TABLET PO SCH (09:43)
[2021-08-29] MEDS: SPIRONOLACTONE 25 MG TABLET PO SCH (09:43)
[2021-08-29] MEDS: ANASTROZOLE 1 MG TABLET PO SCH (09:43)
[2021-08-29] MEDS: PANTOPRAZOLE 40 MG TABLET PO SCH (09:43)
[2021-08-29 11:18] VITALS: BP 102/64
== END 2021-08-29 11:15 | DRG 982 ==
LOC: EDBD → EDUNIT# → N.ED 11:37 → N.EDINP 14:34 → N.3E 17:03
PROVIDERS: ADMIT Family Medicine; ATTEND Family Medicine

== ENCOUNTER 2022-04-25 07:05 | Inpatient (IN) ==
[2022-04-25] MEDS ORDERED: SODIUM CHLORIDE 0.9% 1,000 ML IV STA ×2 (07:39→08:56)
[2022-04-25 07:45] LABS: Basophils % 0.3 % (0.0-0.8); Eosinophils # 0.1 10*3/uL (0.0-0.87); Eosinophils % 0.4 % (0.00-10.9); Hematocrit 36.8 VOL% (35.7-47.0); Hemoglobin 12.1 GM/DL (12.0-16.0); Immature Granulocytes % 0.7 %; Immature Granulocytes Absolute 0.11 #; Lymphocytes # 2.4 10*3/uL (1.4-4.0); Lymphocytes % 15.3 % (21.3-54.2); Mean Corpuscular HGB Conc 32.9 GM/DL (32-36); Mean Platelet Volume 11.5 FL (9.6-12.0); Monocytes # 0.6 10*3/uL (0.11-0.8); Monocytes % 3.8 % (1.7-12.7); Neutrophils % 79.5 % (38.7-73.9); Platelet Count 125 T/CUMM (130-400); Red Blood Count 3.68 MC/CUMM (3.8-5.5); Red Cell Distribution Width 13.3 % (9.3-17.3); White Blood Count 15.6 T/CUMM (4-12)
[2022-04-25 07:51] LABS: INR 1.2; PT Patient Result 12.9 SECS (10.5-12.0)
[2022-04-25 07:57] LABS: Albumin 3.3 G/DL (3.4-5.0); Bilirubin,Total 0.4 MG/DL (0.20-1.00); Calcium 9.9 MG/DL (8.5-10.1); Osmolality,Calculated 288.4 MOS/KG (273-304); Potassium 3.7 MMOL/L (3.5-5.1); Total Protein 7.2 G/DL (6.4-8.2)
[2022-04-25 08:34] LABS: Bacteria,Urine Occasional /HPF (Few); Bilirubin,Urine Negative (Negative); Blood, Urine Small mg/dL (Negative); Glucose,Urine (UA) Negative (Negative); Ketones,Urine Negative (Negative); Nitrite,Urine Negative (Negative); Protein,Urine 30 mg/dL (Negative); Urine Appearance Cloudy (Clear); Urine Color Yellow (Yellow); Urine Specific Gravity 1.015 (1.001-1.035); Urine Urobilinogen 0.2 eU/dL (<2.0); Urine pH 5.5 (4.5-8.0)
[2022-04-25] MEDS ORDERED: cefTRIAXone 1,000 MG in SODIUM CHLORIDE 0.9% 100 ML IV STA (08:46)
[2022-04-25] MEDS ORDERED: AMIODARONE INJ 450 MG in DEXTROSE 5% 241 ML IV SCH (09:00)
[2022-04-25] MEDS ORDERED: ACETAMINOPHEN 325 MG TABLET PO PRN (10:07)
[2022-04-25] MEDS ORDERED: HYDROmorphone 1 MG/1 ML SYRINGE IV PRN (10:07)
[2022-04-25] MEDS ORDERED: ONDANSETRON 4 MG/2 ML VIAL IV PRN (10:07)
[2022-04-25] MEDS ORDERED: DILTIAZEM 25 MG/5 ML VIAL IV STA (10:18)
[2022-04-25] MEDS ORDERED: DIGOXIN 0.5 MG/2 ML AMP IV STA (10:19)
[2022-04-25] MEDS ORDERED: PHENYLEPHRINE DRIP 40 MG/250 ML PREMIX IV PRN (10:24)
[2022-04-25] MEDS: SODIUM CHLORIDE 0.9% 1,000 ML IV SCH ×2 (10:52→18:24)
[2022-04-25] MEDS: DILTIAZEM INJ 100 MG in SODIUM CHLORIDE 0.9% 100 ML IV SCH (11:40)
[2022-04-25] MEDS ORDERED: LEVOFLOXACIN INJ 500 MG/100 ML PREMIX IV ONE (14:00)
[2022-04-25] MEDS ORDERED: ceFAZolin 2,000 MG/50 ML DUPLEX IV ONE (17:05)
[2022-04-25] MEDS: MIRTAZAPINE 15 MG TABLET PO SCH (20:47)
[2022-04-25] MEDS: DIGOXIN 0.125 MG TABLET PO SCH (20:47)
[2022-04-25] MEDS: DOCUSATE SODIUM 100 MG CAPSULE PO SCH (20:47)
[2022-04-25] MEDS: SIMVASTATIN 40 MG TABLET PO SCH (20:47)
[2022-04-25] MEDS: traZODone 50 MG TABLET PO SCH (20:48)
[2022-04-25] MEDS: MEMANTINE 10 MG TABLET PO SCH (20:48)
[2022-04-25] MEDS: DONEPEZIL 5 MG TABLET PO SCH (20:48)
[2022-04-26 00:50] LABS: Basophils % 0.1 % (0.0-0.8); Hematocrit 27.1 VOL% (35.7-47.0); Hemoglobin 8.9 GM/DL (12.0-16.0); Immature Granulocytes % 0.4 %; Immature Granulocytes Absolute 0.04 #; Lymphocytes # 2.6 10*3/uL (1.4-4.0); Lymphocytes % 24.8 % (21.3-54.2); Mean Corpuscular HGB Conc 32.8 GM/DL (32-36); Mean Corpuscular Volume 100.7 FL (87-102); Mean Platelet Volume 11.8 FL (9.6-12.0); Monocytes # 0.8 10*3/uL (0.11-0.8); Monocytes % 7.9 % (1.7-12.7); Neutrophils % 66.8 % (38.7-73.9); Platelet Count 100 T/CUMM (130-400); Red Blood Count 2.69 MC/CUMM (3.8-5.5); Red Cell Distribution Width 13.9 % (9.3-17.3); White Blood Count 10.4 T/CUMM (4-12)
[2022-04-26 01:13] LABS: Albumin 2.9 G/DL (3.4-5.0); Bilirubin,Total 0.4 MG/DL (0.20-1.00); Calcium 8.6 MG/DL (8.5-10.1); Osmolality,Calculated 289.4 MOS/KG (273-304); Potassium 4.8 MMOL/L (3.5-5.1); Total Protein 6.4 G/DL (6.4-8.2)
[2022-04-26] MEDS: SODIUM CHLORIDE 0.9% 1,000 ML IV SCH ×5 (01:35→23:57)
[2022-04-26] MEDS: DILTIAZEM INJ 100 MG in SODIUM CHLORIDE 0.9% 100 ML IV SCH ×3 (07:38→20:17)
[2022-04-26 10:11] LABS: Folate 22.09 NG/ML (5.38-24.0)
[2022-04-26] MEDS ORDERED: fentaNYL 100 MCG/2 ML VIAL ONE (10:20)
[2022-04-26] MEDS ORDERED: LIDOCAINE 1% 5 ML VIAL ONE (10:21)
[2022-04-26] MEDS ORDERED: ROPIVACAINE 0.5% 30 ML VIAL ONE (10:21)
[2022-04-26] MEDS ORDERED: ALBUTEROL/IPRATROPIUM 3 ML NEB RESP TX ONE (10:28)
[2022-04-26] MEDS ORDERED: ETOMIDATE 40 MG/20 ML VIAL IV ONE (10:31)
[2022-04-26] MEDS ORDERED: LIDOCAINE 2% 5 ML VIAL ONE (10:31)
[2022-04-26] MEDS ORDERED: ROCURONIUM 50 MG/5 ML VIAL IV ONE (10:31)
[2022-04-26] MEDS ORDERED: ALBUMIN 5% 25.0 GM/500 ML VIAL IV ONE (10:50)
[2022-04-26] MEDS: ANASTROZOLE 1 MG TABLET PO SCH (10:50)
[2022-04-26] MEDS: ASPIRIN EC 81 MG TABLET PO SCH (10:50)
[2022-04-26] MEDS: MEMANTINE 10 MG TABLET PO SCH ×2 (10:51→21:50)
[2022-04-26] MEDS: METOPROLOL TARTRATE 25 MG TABLET PO SCH ×2 (10:51→21:50)
[2022-04-26] MEDS: PANTOPRAZOLE 40 MG TABLET PO SCH (10:51)
[2022-04-26] MEDS: MULTIVITAMIN (CENTRUM) TABLET PO SCH (10:51)
[2022-04-26] MEDS: DOCUSATE SODIUM 100 MG CAPSULE PO SCH ×2 (10:51→21:50)
[2022-04-26] MEDS ORDERED: ESMOLOL 100 MG/10 ML VIAL IV ONE (11:31)
[2022-04-26] MEDS ORDERED: ceFAZolin 1,000 MG VIAL ONE ×2 (11:38)
[2022-04-26] MEDS ORDERED: SEVOFLURANE 1 UNIT/15 MINUTE INH ONE ×8 (12:37→13:50)
[2022-04-26] MEDS ORDERED: propofoL 200 MG/20 ML VIAL IV ONE ×2 (12:37)
[2022-04-26] MEDS: DIGOXIN 0.125 MG TABLET PO SCH (12:46)
[2022-04-26] MEDS ORDERED: SUGAMMADEX 200 MG/2 ML VIAL IV ONE (13:05)
[2022-04-26] MEDS ORDERED: MORPHINE 2 MG/1 ML SYRINGE IV PRN (13:27)
[2022-04-26] MEDS ORDERED: MEPERIDINE 25 MG/1 ML VIAL ONE (13:37)
[2022-04-26] MEDS: LEVOFLOXACIN INJ 250 MG/50 ML PREMIX IV SCH (13:56)
[2022-04-26] MEDS ORDERED: ONDANSETRON 4 MG/2 ML VIAL IV PRN (13:57)
[2022-04-26] MEDS ORDERED: MEPERIDINE 25 MG/1 ML VIAL IV PRN (13:57)
[2022-04-26] MEDS ORDERED: diphenhydrAMINE 50 MG/1 ML VIAL IV PRN (13:57)
[2022-04-26] MEDS ORDERED: PROMETHAZINE INJ 25 MG in SODIUM CHLORIDE 0.9% 50 ML IV PRN (13:57)
[2022-04-26] MEDS: ALBUTEROL/IPRATROPIUM 3 ML NEB RESP TX SCH ×2 (13:58→19:00)
[2022-04-26] MEDS: ceFAZolin 2,000 MG/50 ML DUPLEX IV SCH (17:28)
[2022-04-26] MEDS: SIMVASTATIN 40 MG TABLET PO SCH (21:49)
[2022-04-26] MEDS: traZODone 50 MG TABLET PO SCH (21:49)
[2022-04-26] MEDS: DONEPEZIL 5 MG TABLET PO SCH (21:49)
[2022-04-26] MEDS: ASCORBIC ACID 500 MG TABLET PO SCH (21:50)
[2022-04-26] MEDS: MIRTAZAPINE 15 MG TABLET PO SCH (23:56)
[2022-04-27] MEDS: ALBUTEROL/IPRATROPIUM 3 ML NEB RESP TX SCH ×4 (00:30→19:06)
[2022-04-27 00:46] LABS: Basophils % 0.1 % (0.0-0.8); Eosinophils % 0.1 % (0.00-10.9); Immature Granulocytes % 0.6 %; Immature Granulocytes Absolute 0.08 #; Lymphocytes # 2.8 10*3/uL (1.4-4.0); Lymphocytes % 22.5 % (21.3-54.2); Mean Corpuscular HGB Conc 31.8 GM/DL (32-36); Mean Corpuscular Volume 104.7 FL (87-102); Mean Platelet Volume 10.9 FL (9.6-12.0); Monocytes # 1.3 10*3/uL (0.11-0.8); Monocytes % 10.2 % (1.7-12.7); NRBC # 0.02 10*3/uL; Neutrophils % 66.5 % (38.7-73.9); Platelet Count 79 T/CUMM (130-400); Red Blood Count 1.71 MC/CUMM (3.8-5.5); Red Cell Distribution Width 14.2 % (9.3-17.3); White Blood Count 12.6 T/CUMM (4-12)
[2022-04-27 00:50] LABS: Hemoglobin 5.7 GM/DL (12.0-16.0)
[2022-04-27 00:51] LABS: Hematocrit 17.9 VOL% (35.7-47.0)
[2022-04-27 00:59] LABS: Osmolality,Calculated 290.4 MOS/KG (273-304); Potassium 4.4 MMOL/L (3.5-5.1)
[2022-04-27] MEDS ORDERED: SODIUM CHLORIDE 0.9% 1,000 ML IV PRN ×2 (01:18→18:32)
[2022-04-27] MEDS ORDERED: FUROSEMIDE 20 MG/2 ML VIAL IV ONE ×3 (01:21→20:05)
[2022-04-27 01:49] LABS: Platelet Estimate Decreased
[2022-04-27 01:50] LABS: Macrocytosis Slight
[2022-04-27] MEDS: ceFAZolin 2,000 MG/50 ML DUPLEX IV SCH (02:23)
[2022-04-27] MEDS: SODIUM CHLORIDE 0.9% 1,000 ML IV SCH ×3 (03:36→20:30)
[2022-04-27 09:19] LABS: Albumin 2.8 G/DL (3.4-5.0); Bilirubin,Total 0.7 MG/DL (0.20-1.00); Calcium 8.1 MG/DL (8.5-10.1); Osmolality,Calculated 293.3 MOS/KG (273-304); Potassium 4.8 MMOL/L (3.5-5.1); Total Protein 5.6 G/DL (6.4-8.2)
[2022-04-27] MEDS: APIXABAN 2.5 MG TABLET PO SCH ×2 (10:37→21:27)
[2022-04-27] MEDS: ASPIRIN EC 81 MG TABLET PO SCH (10:37)
[2022-04-27] MEDS: METOPROLOL TARTRATE 25 MG TABLET PO SCH ×2 (10:37→21:26)
[2022-04-27] MEDS: ANASTROZOLE 1 MG TABLET PO SCH (10:37)
[2022-04-27] MEDS: MULTIVITAMIN (CENTRUM) TABLET PO SCH (10:37)
[2022-04-27] MEDS: PANTOPRAZOLE 40 MG TABLET PO SCH (10:37)
[2022-04-27] MEDS: DOCUSATE SODIUM 100 MG CAPSULE PO SCH ×2 (10:37→21:27)
[2022-04-27] MEDS: ASCORBIC ACID 500 MG TABLET PO SCH ×2 (10:38→21:26)
[2022-04-27] MEDS: MEMANTINE 10 MG TABLET PO SCH ×2 (10:38→21:26)
[2022-04-27] MEDS: DILTIAZEM INJ 100 MG in SODIUM CHLORIDE 0.9% 100 ML IV SCH ×2 (10:54→21:25)
[2022-04-27 12:09] LABS: Hematocrit 24.1 VOL% (35.7-47.0); Hemoglobin 7.9 GM/DL (12.0-16.0)
[2022-04-27] MEDS: DIGOXIN 0.125 MG TABLET PO SCH (14:16)
[2022-04-27] MEDS: LEVOFLOXACIN INJ 250 MG/50 ML PREMIX IV SCH (14:35)
[2022-04-27] MEDS ORDERED: FUROSEMIDE 20 MG/2 ML VIAL IV STA (16:49)
[2022-04-27] MEDS: MIRTAZAPINE 15 MG TABLET PO SCH (21:26)
[2022-04-27] MEDS: DONEPEZIL 5 MG TABLET PO SCH (21:27)
[2022-04-27] MEDS: SIMVASTATIN 40 MG TABLET PO SCH (21:27)
[2022-04-27] MEDS: traZODone 50 MG TABLET PO SCH (21:27)
[2022-04-27] MEDS: MORPHINE 2 MG/1 ML SYRINGE IV PRN (23:03)
[2022-04-28] MEDS: ALBUTEROL/IPRATROPIUM 3 ML NEB RESP TX SCH ×4 (00:14→19:25)
[2022-04-28] MEDS: SODIUM CHLORIDE 0.9% 1,000 ML IV SCH ×3 (03:36→20:52)
[2022-04-28 04:48] LABS: Basophils % 0.1 % (0.0-0.8); Eosinophils # 0.1 10*3/uL (0.0-0.87); Eosinophils % 0.9 % (0.00-10.9); Hematocrit 29.1 VOL% (35.7-47.0); Hemoglobin 9.6 GM/DL (12.0-16.0); Immature Granulocytes % 0.6 %; Immature Granulocytes Absolute 0.06 #; Lymphocytes # 2.2 10*3/uL (1.4-4.0); Mean Corpuscular Volume 94.2 FL (87-102); Mean Platelet Volume 11.6 FL (9.6-12.0); NRBC # 0.07 10*3/uL; Neutrophils % 65.4 % (38.7-73.9); Platelet Count 64 T/CUMM (130-400); Red Blood Count 3.09 MC/CUMM (3.8-5.5); Red Cell Distribution Width 16.7 % (9.3-17.3); White Blood Count 9.7 T/CUMM (4-12)
[2022-04-28 05:18] LABS: Albumin 2.8 G/DL (3.4-5.0); Bilirubin,Total 0.7 MG/DL (0.20-1.00); Calcium 8.1 MG/DL (8.5-10.1); Osmolality,Calculated 289.3 MOS/KG (273-304); Total Protein 5.9 G/DL (6.4-8.2)
[2022-04-28 05:29] LABS: Platelet Estimate Decreased
[2022-04-28] MEDS: DILTIAZEM 30 MG TABLET PO SCH ×3 (09:39→20:49)
[2022-04-28] MEDS: PANTOPRAZOLE 40 MG TABLET PO SCH (09:40)
[2022-04-28] MEDS: APIXABAN 2.5 MG TABLET PO SCH ×2 (09:40→20:50)
[2022-04-28] MEDS: ASPIRIN EC 81 MG TABLET PO SCH (09:40)
[2022-04-28] MEDS: MULTIVITAMIN (CENTRUM) TABLET PO SCH ×2 (09:40→20:50)
[2022-04-28] MEDS: ASCORBIC ACID 500 MG TABLET PO SCH ×2 (09:40→20:50)
[2022-04-28] MEDS: METOPROLOL TARTRATE 25 MG TABLET PO SCH ×2 (09:41→20:50)
[2022-04-28] MEDS: MEMANTINE 10 MG TABLET PO SCH ×2 (09:41→20:50)
[2022-04-28] MEDS: ANASTROZOLE 1 MG TABLET PO SCH (09:41)
[2022-04-28] MEDS: DOCUSATE SODIUM 100 MG CAPSULE PO SCH ×2 (09:41→20:50)
[2022-04-28] MEDS: DIGOXIN 0.125 MG TABLET PO SCH (13:26)
[2022-04-28] MEDS: LEVOFLOXACIN INJ 250 MG/50 ML PREMIX IV SCH (13:33)
[2022-04-28] MEDS: DILTIAZEM INJ 100 MG in SODIUM CHLORIDE 0.9% 100 ML IV SCH (13:53)
[2022-04-28] MEDS: SIMVASTATIN 40 MG TABLET PO SCH (20:49)
[2022-04-28] MEDS: DONEPEZIL 5 MG TABLET PO SCH (20:49)
[2022-04-28] MEDS: traZODone 50 MG TABLET PO SCH (20:50)
[2022-04-28] MEDS: MIRTAZAPINE 15 MG TABLET PO SCH (20:50)
[2022-04-28] MEDS: MORPHINE 2 MG/1 ML SYRINGE IV PRN (20:53)
[2022-04-29] MEDS: ALBUTEROL/IPRATROPIUM 3 ML NEB RESP TX SCH ×4 (00:34→19:20)
[2022-04-29] MEDS: DOXYCYCLINE HYCLATE 100 MG CAPSULE PO SCH ×3 (01:10→21:11)
[2022-04-29] MEDS: SODIUM CHLORIDE 0.9% 1,000 ML IV SCH ×2 (04:35→17:43)
[2022-04-29 05:32] LABS: Basophils % 0.1 % (0.0-0.8); Eosinophils # 0.1 10*3/uL (0.0-0.87); Eosinophils % 1.7 % (0.00-10.9); Hematocrit 28.6 VOL% (35.7-47.0); Hemoglobin 9.2 GM/DL (12.0-16.0); Immature Granulocytes % 0.6 %; Immature Granulocytes Absolute 0.04 #; Lymphocytes # 1.7 10*3/uL (1.4-4.0); Lymphocytes % 23.1 % (21.3-54.2); Mean Corpuscular HGB Conc 32.2 GM/DL (32-36); Mean Corpuscular Volume 97.6 FL (87-102); Mean Platelet Volume 11.9 FL (9.6-12.0); Monocytes # 0.7 10*3/uL (0.11-0.8); Monocytes % 9.2 % (1.7-12.7); NRBC # 0.03 10*3/uL; Neutrophils % 65.3 % (38.7-73.9); Platelet Count 66 T/CUMM (130-400); Red Blood Count 2.93 MC/CUMM (3.8-5.5); Red Cell Distribution Width 16.6 % (9.3-17.3); White Blood Count 7.2 T/CUMM (4-12)
[2022-04-29 05:52] LABS: Macrocytosis Slight; Platelet Estimate Decreased
[2022-04-29 05:53] LABS: Calcium 8.4 MG/DL (8.5-10.1); Osmolality,Calculated 284.3 MOS/KG (273-304); Potassium 4.3 MMOL/L (3.5-5.1)
[2022-04-29] MEDS: ASCORBIC ACID 500 MG TABLET PO SCH ×2 (08:46→21:10)
[2022-04-29] MEDS: PANTOPRAZOLE 40 MG TABLET PO SCH (08:47)
[2022-04-29] MEDS: DOCUSATE SODIUM 100 MG CAPSULE PO SCH ×2 (08:47→21:11)
[2022-04-29] MEDS: ASPIRIN EC 81 MG TABLET PO SCH (08:47)
[2022-04-29] MEDS: MEMANTINE 10 MG TABLET PO SCH ×2 (08:47→21:10)
[2022-04-29] MEDS: ANASTROZOLE 1 MG TABLET PO SCH (08:47)
[2022-04-29] MEDS: DILTIAZEM 30 MG TABLET PO SCH (08:47)
[2022-04-29] MEDS: METOPROLOL TARTRATE 25 MG TABLET PO SCH ×2 (08:47→21:12)
[2022-04-29] MEDS: APIXABAN 2.5 MG TABLET PO SCH ×2 (08:47→21:10)
[2022-04-29] MEDS: MULTIVITAMIN (CENTRUM) TABLET PO SCH (08:47)
[2022-04-29] MEDS: MORPHINE 2 MG/1 ML SYRINGE IV PRN (10:47)
[2022-04-29] MEDS: DILTIAZEM CD 120 MG CAPSULE PO SCH (10:47)
[2022-04-29] MEDS: DIGOXIN 0.125 MG TABLET PO SCH (13:35)
[2022-04-29] MEDS: MIRTAZAPINE 15 MG TABLET PO SCH (21:10)
[2022-04-29] MEDS: DONEPEZIL 5 MG TABLET PO SCH (21:11)
[2022-04-29] MEDS: ATORVASTATIN 40 MG TABLET PO SCH (21:11)
[2022-04-29] MEDS: traZODone 50 MG TABLET PO SCH (21:12)
[2022-04-30] MEDS: ALBUTEROL/IPRATROPIUM 3 ML NEB RESP TX SCH ×4 (00:35→19:36)
[2022-04-30] MEDS: SODIUM CHLORIDE 0.9% 1,000 ML IV SCH ×5 (03:13→19:44)
[2022-04-30] MEDS: MORPHINE 2 MG/1 ML SYRINGE IV PRN ×2 (04:45→09:55)
[2022-04-30 04:51] LABS: Basophils % 0.1 % (0.0-0.8); Eosinophils # 0.1 10*3/uL (0.0-0.87); Eosinophils % 1.3 % (0.00-10.9); Hematocrit 31.5 VOL% (35.7-47.0); Hemoglobin 10.1 GM/DL (12.0-16.0); Immature Granulocytes % 0.6 %; Immature Granulocytes Absolute 0.05 #; Lymphocytes % 22.8 % (21.3-54.2); Mean Corpuscular HGB Conc 32.1 GM/DL (32-36); Mean Corpuscular Volume 96.9 FL (87-102); Mean Platelet Volume 11.4 FL (9.6-12.0); Monocytes # 0.8 10*3/uL (0.11-0.8); Monocytes % 9.5 % (1.7-12.7); NRBC # 0.03 10*3/uL; Neutrophils % 65.7 % (38.7-73.9); Platelet Count 87 T/CUMM (130-400); Red Blood Count 3.25 MC/CUMM (3.8-5.5); Red Cell Distribution Width 16.6 % (9.3-17.3); White Blood Count 8.8 T/CUMM (4-12)
[2022-04-30 05:06] LABS: Calcium 8.8 MG/DL (8.5-10.1); Osmolality,Calculated 281.4 MOS/KG (273-304); Potassium 4.2 MMOL/L (3.5-5.1)
[2022-04-30 05:13] LABS: Platelet Estimate Decreased
[2022-04-30] MEDS: PANTOPRAZOLE 40 MG TABLET PO SCH (09:52)
[2022-04-30] MEDS: APIXABAN 2.5 MG TABLET PO SCH ×2 (09:52→21:23)
[2022-04-30] MEDS: MULTIVITAMIN (CENTRUM) TABLET PO SCH (09:52)
[2022-04-30] MEDS: MEMANTINE 10 MG TABLET PO SCH ×2 (09:52→21:25)
[2022-04-30] MEDS: DILTIAZEM CD 120 MG CAPSULE PO SCH ×2 (09:52→21:23)
[2022-04-30] MEDS: ANASTROZOLE 1 MG TABLET PO SCH (09:53)
[2022-04-30] MEDS: DOXYCYCLINE HYCLATE 100 MG CAPSULE PO SCH ×2 (09:53→21:22)
[2022-04-30] MEDS: METOPROLOL TARTRATE 50 MG TABLET PO SCH ×2 (09:53→21:23)
[2022-04-30] MEDS: ASCORBIC ACID 500 MG TABLET PO SCH ×2 (09:53→21:23)
[2022-04-30] MEDS: ASPIRIN EC 81 MG TABLET PO SCH (09:53)
[2022-04-30] MEDS: DOCUSATE SODIUM 100 MG CAPSULE PO SCH ×2 (09:53→21:23)
[2022-04-30] MEDS ORDERED: KETOROLAC 30 MG/1 ML VIAL IV ONE (10:10)
[2022-04-30] MEDS: DIGOXIN 0.125 MG TABLET PO SCH (11:28)
[2022-04-30] MEDS: MIRTAZAPINE 15 MG TABLET PO SCH (21:22)
[2022-04-30] MEDS: ATORVASTATIN 40 MG TABLET PO SCH (21:23)
[2022-04-30] MEDS: DONEPEZIL 5 MG TABLET PO SCH (21:23)
[2022-04-30] MEDS: traZODone 50 MG TABLET PO SCH (21:24)
[2022-05-01] MEDS: ALBUTEROL/IPRATROPIUM 3 ML NEB RESP TX SCH ×4 (01:07→19:26)
[2022-05-01] MEDS: MORPHINE 2 MG/1 ML SYRINGE IV PRN (01:12)
[2022-05-01] MEDS: SODIUM CHLORIDE 0.9% 1,000 ML IV SCH ×2 (03:57→21:21)
[2022-05-01] MEDS ORDERED: FUROSEMIDE 40 MG/4 ML VIAL IV ONE (09:00)
[2022-05-01] MEDS: ASCORBIC ACID 500 MG TABLET PO SCH ×2 (09:10→21:21)
[2022-05-01] MEDS: DILTIAZEM CD 120 MG CAPSULE PO SCH ×2 (09:10→21:21)
[2022-05-01] MEDS: ANASTROZOLE 1 MG TABLET PO SCH (09:11)
[2022-05-01] MEDS: PANTOPRAZOLE 40 MG TABLET PO SCH (09:11)
[2022-05-01] MEDS: ASPIRIN EC 81 MG TABLET PO SCH (09:11)
[2022-05-01] MEDS: DOCUSATE SODIUM 100 MG CAPSULE PO SCH ×2 (09:11→21:20)
[2022-05-01] MEDS: MEMANTINE 10 MG TABLET PO SCH ×2 (09:11→21:21)
[2022-05-01] MEDS: MULTIVITAMIN (CENTRUM) TABLET PO SCH (09:11)
[2022-05-01] MEDS: APIXABAN 2.5 MG TABLET PO SCH ×2 (09:14→21:21)
[2022-05-01] MEDS: METOPROLOL TARTRATE 50 MG TABLET PO SCH ×2 (09:14→21:21)
[2022-05-01] MEDS: DOXYCYCLINE HYCLATE 100 MG CAPSULE PO SCH ×2 (09:15→21:22)
[2022-05-01] MEDS: DIGOXIN 0.125 MG TABLET PO SCH (12:14)
[2022-05-01] MEDS: MAGNESIUM HYDROXIDE SUSP 30 ML UDCUP PO PRN (17:41)
[2022-05-01] MEDS: DONEPEZIL 5 MG TABLET PO SCH (21:21)
[2022-05-01] MEDS: MIRTAZAPINE 15 MG TABLET PO SCH (21:22)
[2022-05-01] MEDS: traZODone 50 MG TABLET PO SCH (21:22)
[2022-05-01] MEDS: ATORVASTATIN 40 MG TABLET PO SCH (21:22)
[2022-05-02] MEDS: ALBUTEROL/IPRATROPIUM 3 ML NEB RESP TX SCH ×5 (00:16→23:48)
[2022-05-02 06:10] LABS: Basophils % 0.2 % (0.0-0.8); Eosinophils # 0.1 10*3/uL (0.0-0.87); Eosinophils % 1.7 % (0.00-10.9); Hematocrit 30.4 VOL% (35.7-47.0); Hemoglobin 9.5 GM/DL (12.0-16.0); Immature Granulocytes % 0.6 %; Immature Granulocytes Absolute 0.05 #; Lymphocytes # 1.9 10*3/uL (1.4-4.0); Lymphocytes % 22.5 % (21.3-54.2); Mean Corpuscular HGB Conc 31.3 GM/DL (32-36); Mean Corpuscular Volume 97.4 FL (87-102); Mean Platelet Volume 11.2 FL (9.6-12.0); Monocytes # 0.8 10*3/uL (0.11-0.8); Monocytes % 9.1 % (1.7-12.7); NRBC # 0.03 10*3/uL; Neutrophils % 65.9 % (38.7-73.9); Platelet Count 136 T/CUMM (130-400); Red Blood Count 3.12 MC/CUMM (3.8-5.5); White Blood Count 8.4 T/CUMM (4-12)
[2022-05-02 06:28] LABS: Calcium 8.8 MG/DL (8.5-10.1); Osmolality,Calculated 278.5 MOS/KG (273-304); Potassium 3.9 MMOL/L (3.5-5.1)
[2022-05-02] MEDS: SODIUM CHLORIDE 0.9% 1,000 ML IV SCH (06:29)
[2022-05-02] MEDS ORDERED: TUBERCULIN SKIN TEST 0.1 ML SYRINGE INTRADERM ONE (08:52)
[2022-05-02] MEDS: DOCUSATE SODIUM 100 MG CAPSULE PO SCH ×2 (09:38→22:03)
[2022-05-02] MEDS: MEMANTINE 10 MG TABLET PO SCH ×2 (09:39→22:02)
[2022-05-02] MEDS: METOPROLOL TARTRATE 50 MG TABLET PO SCH ×2 (09:39→22:03)
[2022-05-02] MEDS: ASPIRIN EC 81 MG TABLET PO SCH (09:39)
[2022-05-02] MEDS: DILTIAZEM CD 120 MG CAPSULE PO SCH ×2 (09:39→22:03)
[2022-05-02] MEDS: APIXABAN 2.5 MG TABLET PO SCH ×2 (09:39→22:02)
[2022-05-02] MEDS: DOXYCYCLINE HYCLATE 100 MG CAPSULE PO SCH ×2 (09:39→22:02)
[2022-05-02] MEDS: ANASTROZOLE 1 MG TABLET PO SCH (09:39)
[2022-05-02] MEDS: PANTOPRAZOLE 40 MG TABLET PO SCH (09:39)
[2022-05-02] MEDS: ASCORBIC ACID 500 MG TABLET PO SCH ×2 (09:39→22:02)
[2022-05-02] MEDS: MULTIVITAMIN (CENTRUM) TABLET PO SCH (09:39)
[2022-05-02] MEDS: DIGOXIN 0.125 MG TABLET PO SCH (12:03)
[2022-05-02] MEDS: MIRTAZAPINE 15 MG TABLET PO SCH (22:02)
[2022-05-02] MEDS: traZODone 50 MG TABLET PO SCH (22:03)
[2022-05-02] MEDS: ATORVASTATIN 40 MG TABLET PO SCH (22:03)
[2022-05-02] MEDS: DONEPEZIL 5 MG TABLET PO SCH (22:04)
[2022-05-03] MEDS: ALBUTEROL/IPRATROPIUM 3 ML NEB RESP TX SCH (07:30)
[2022-05-03] MEDS: APIXABAN 2.5 MG TABLET PO SCH (08:55)
[2022-05-03] MEDS: PANTOPRAZOLE 40 MG TABLET PO SCH (08:55)
[2022-05-03] MEDS: MEMANTINE 10 MG TABLET PO SCH (08:55)
[2022-05-03] MEDS: MAGNESIUM HYDROXIDE SUSP 30 ML UDCUP PO PRN (08:55)
[2022-05-03] MEDS: ASPIRIN EC 81 MG TABLET PO SCH (08:55)
[2022-05-03] MEDS: DOCUSATE SODIUM 100 MG CAPSULE PO SCH (08:55)
[2022-05-03] MEDS: DOXYCYCLINE HYCLATE 100 MG CAPSULE PO SCH (08:55)
[2022-05-03] MEDS: MULTIVITAMIN (CENTRUM) TABLET PO SCH (08:55)
[2022-05-03] MEDS: DILTIAZEM CD 120 MG CAPSULE PO SCH (08:55)
[2022-05-03] MEDS: ANASTROZOLE 1 MG TABLET PO SCH (08:55)
[2022-05-03] MEDS: METOPROLOL TARTRATE 50 MG TABLET PO SCH (08:55)
[2022-05-03] MEDS: ASCORBIC ACID 500 MG TABLET PO SCH (08:56)
[2022-05-03 12:10] VITALS: BP 126/71
[2022-05-03] MEDS: DIGOXIN 0.125 MG TABLET PO SCH (13:18)
[2022-05-03] MEDS: SODIUM CHLORIDE 0.9% 1,000 ML IV SCH (13:18)
== END 2022-05-03 12:50 | DRG 853 ==
LOC: EDUNIT# → EDBD → N.ED 07:05 → N.EDINP 10:07 → N.TELEN 17:32
PROVIDERS: ADMIT Family Medicine; ATTEND Family Medicine